=== PATIENT | female | born 1980 | race Caucasian/White ===

== ENCOUNTER → 2018-08-10 | Day surgery (SDC) | payer BC, SELFPAY ==
[2018-08-10 19:49] VITALS: BMI 30.2
--- NOTE | 2018-08-11 00:22 | PRG ---
DATE OF SERVICE: 08/10/2018 TIME OF SERVICE: 2215 hours. PRESENTING COMPLAINT: Vaginal bleeding and occasional contractions. HISTORY OF PRESENT ILLNESS: Ms. Radford is a patient of Dr. Nancy Desai, who is a G3, P2, at weeks' gestation. She reported some bleeding at home. When she presented, she had approximately 2 to 4 cm area on the pad. On cervical exam, she was noted to be 2 to 3 cm, 75% effaced, and -1 cephalic, bag of water intact, moderate amount of bleeding was noted down as well. VICE PRESIDENT PROCESS HISTORY: As noted; previous x2, ADAM of 08/20. The patient's group B strep negative. She is blood type A positive, antibody negative. PAST MEDICAL HISTORY: None. PAST SURGICAL HISTORY: None. ALLERGIES: DENIES. MEDICATIONS: vitamins. SOCIAL HISTORY: Denies tobacco, tobacco, or drug use. FAMILY HISTORY: Noncontributory. REVIEW OF SYSTEMS: Noncontributory. PHYSICAL EXAMINATION: GENERAL: White female, in no acute distress. VITAL SIGNS: Temperature 97, respirations 18, pulse 85, and blood pressure 118/72. HEENT: Within normal limits. LUNGS: Clear to auscultation bilaterally. ABDOMEN: Soft and nontender with occasional contractions. Fundal height 37 cm. FHTs 130s to 140s . GENITALIA: Vulva without lesions. Vagina is without discharge. Cervix after 2 hours of walking a recheck, she is still noted to be 2 to 3 cm, 75% to 80% effaced, -1 cephalic. A small amount of blood was noted. The baby was ballotable. There was no evidence of rupture of membranes. heart tracing revealed a category 1 heart rate tracing without decelerations. Bedside ultrasound was performed to evaluate for possibility of Vasa previa. No evidence of blood vessels noted on color-flow Doppler. IMPRESSION: Small amount of bleeding in early prodromal labor. No evidence of active labor. PLAN: Discussed with the patient options. We will discharge home. ER precautions. The patient is to keep scheduled followup with Dr. Desai. Job ID: [id number]
== END ==
LOC: L&D/OP 19:18
PROVIDERS: ATTEND Family Medicine
DX: O46.90 Antepartum hemorrhage, unspecified, unspecified trimester (principal); O47.9 False labor, unspecified; Z79.899 Other long term (current) drug therapy

== ENCOUNTER 2018-08-18 04:18 | Inpatient (IN) | payer BC ==
[2018-08-18 05:10] VITALS: BMI 30.1
[2018-08-18 05:37] LABS: Hemoglobin 11.3 g/dL (12.0-16.0); Mean Corpuscular HGB CONC 33.9 g/dL (32.0-36.0); Mean Corpuscular Volume 82.6 fL (78.0-98.0); Mean Platelet Volume 7.4 fL (7.4-10.4); Platelet Count 284 thou/uL (130-400); RBC Distribution Width 14.1 % (11.5-14.5); Red Blood Cell (RBC) Count 4.02 mill/uL (4.20-5.40); White Blood Cell (WBC) Count 12.5 thou/uL (4.8-10.8)
[2018-08-18] MEDS ORDERED: Promethazine HCl 25 MG/ML VIAL IM PRN (05:50)
[2018-08-18] MEDS ORDERED: Lactated Ringer's 1,000 ML IV SCH (05:50)
[2018-08-18] MEDS ORDERED: Ondansetron PF 4 MG/2 ML Vial IVP PRN (05:50)
[2018-08-18] MEDS ORDERED: NS w/ Oxytocin 10 units 500 ML IV SCH ×2 (06:00)
[2018-08-18] MEDS ORDERED: Lidocaine 1% (PF) 30 ML VIAL SC PRN (06:00)
[2018-08-18 06:07] LABS: HBSAg Index 0.29 S/CO (0-0.99); Hep B Surf Ag Non-Reactive S/CO (NonReactive)
[2018-08-18 06:21] LABS: Syphilis Antibody Nonreactive (Nonreactive); Syphilis Antibody Index 0.03 S/CO (<1.00 Non-Reactive)
[2018-08-18] MEDS ORDERED: Misoprostol 200 MCG TAB ONE (09:16)
[2018-08-18] MEDS: NS / Oxytocin 40 units/1000ml 1,000 ML IV SCH ×2 (09:18→10:53)
[2018-08-18] MEDS ORDERED: Misoprostol 200 MCG TAB PR SCH (10:15)
[2018-08-18] MEDS: Ibuprofen 800 MG TAB PO SCH ×2 (12:05→20:34)
[2018-08-18] MEDS: HYDROcodone/Acetaminophen 5/325 mg Tablet PO PRN ×2 (12:05→16:15)
[2018-08-18] MEDS ORDERED: Adacel (T-DAP) 0.5 ML SYRINGE IM ONE (13:22)
[2018-08-18] MEDS ORDERED: NS / Oxytocin 40 units/1000ml 1,000 ML IV SCH (13:22)
[2018-08-18] MEDS ORDERED: Bisacodyl 10 MG SUPP PR PRN (13:22)
[2018-08-18] MEDS ORDERED: Milk Of Magnesia 30 ML UDCUP PO PRN (13:22)
[2018-08-18] MEDS: Ferrous Sulfate 325 MG TAB PO SCH (16:24)
[2018-08-18] MEDS: Docusate Calcium (SURFAK) 240 MG CAP PO SCH (20:34)
[2018-08-18] MEDS ORDERED: Lanolin Ointment 7 GM TUBE TOP PRN (22:58)
[2018-08-19] MEDS: Ibuprofen 800 MG TAB PO SCH ×3 (05:18→21:33)
[2018-08-19 06:16] LABS: Hemoglobin 8.3 g/dL (12.0-16.0); Mean Corpuscular HGB CONC 33.6 g/dL (32.0-36.0); Mean Corpuscular Hemoglobin 28.4 pg (27.0-31.0); Mean Corpuscular Volume 84.6 fL (78.0-98.0); Mean Platelet Volume 6.8 fL (7.4-10.4); Platelet Count 223 thou/uL (130-400); RBC Distribution Width 13.9 % (11.5-14.5); Red Blood Cell (RBC) Count 2.93 mill/uL (4.20-5.40); White Blood Cell (WBC) Count 11.8 thou/uL (4.8-10.8)
[2018-08-19] MEDS: Ferrous Sulfate 325 MG TAB PO SCH ×2 (08:21→15:58)
[2018-08-19] MEDS: HYDROcodone/Acetaminophen 5/325 mg Tablet PO PRN (08:22)
[2018-08-19] MEDS: Docusate Calcium (SURFAK) 240 MG CAP PO SCH ×2 (10:08→21:33)
--- NOTE | 2018-08-19 13:03 | PDOC.PP ---
Post Progress Note Post Day #: 1 Subjective: Doing well. . PO intake tolerated: yes Flatus: yes Ambulation: yes Vital Signs (12 hours) Temp Pulse Resp BP Pulse Ox 08/19/18 08:13 98.4 F 73 20 97/54 L 96 08/19/18 05:25 97.6 F 69 16 99/57 L Weight Weight 198 lb - Physical Examination General: NAD Cardiovascular: no m/r/g, RRR Respiratory: clear to auscultation bilaterally, non-labored breathing Abdominal: + bowel sounds, lochia, no distention, appropriately TTP Result Diagrams: 08/19/18 05:52 Additional Labs: Post Labs Blood Type A POSITIVE 08/18/18 05:20 Hep Bs Antigen Non-Reactive S/CO (NonReactive) 08/18/18 05:20 (1) Vaginal delivery Code(s): O80 - ENCOUNTER FOR FULL-TERM UNCOMPLICATED DELIVERY Status: Acute - Assessment/Plan Routine care D/C tomorrow
[2018-08-20] MEDS: Ibuprofen 800 MG TAB PO SCH (05:44)
[2018-08-20 07:53] VITALS: BP 96/52; TEMP 98.3
--- NOTE | 2018-08-20 08:26 | PDOC.PP ---
Post Progress Note Post Day #: 2 Subjective: Doing well, no complaints, no sx of anemia PO intake tolerated: yes Flatus: yes Ambulation: yes Vital Signs (12 hours) Temp Pulse Resp BP Pulse Ox 08/20/18 07:52 98.3 F 78 20 96/52 L 98 Weight Weight 198 lb - Physical Examination General: NAD Cardiovascular: RRR (2/6 flow murmur) Respiratory: clear to auscultation bilaterally, non-labored breathing Abdominal: + bowel sounds, lochia, no distention, appropriately TTP Result Diagrams: 08/19/18 05:52 Additional Labs: Post Labs Blood Type A POSITIVE 08/18/18 05:20 Hep Bs Antigen Non-Reactive S/CO (NonReactive) 08/18/18 05:20 (1) Vaginal delivery Code(s): O80 - ENCOUNTER FOR FULL-TERM UNCOMPLICATED DELIVERY Status: Acute - Assessment/Plan Routine care D/C home
[2018-08-20] MEDS: Docusate Calcium (SURFAK) 240 MG CAP PO SCH (09:11)
[2018-08-20] MEDS: Ferrous Sulfate 325 MG TAB PO SCH (09:11)
== END 2018-08-20 11:25 | disposition home or self-care (01) | DRG 807 ==
LOC: L&D/OP 04:18 → L&D 05:10 → 3SW 14:17
PROVIDERS: ADMIT Family Medicine; ATTEND Family Medicine
PROC: 10E0XZZ Delivery of Products of Conception, External Approach (ICD-10-PCS; principal; 2018-08-18)
PROC: 0HQ9XZZ Repair Perineum Skin, External Approach (ICD-10-PCS; 2018-08-18)
PROC: 10907ZC Drainage of Amniotic Fluid, Therapeutic from Products of Conception, Via Natural or Artificial Opening (ICD-10-PCS; 2018-08-18)
DX: O70.0 First degree perineal laceration during delivery (principal); Z37.0 Single live birth; Z3A.39 39 weeks gestation of pregnancy
CPT/HCPCS: 36415; 85027; 86780; 86850; 86900; 86901; 87340; 99285; J2001

== ENCOUNTER 2022-06-20 13:36 | Outpatient (CLI) | payer BC | END 2022-06-20 13:37 | disposition home or self-care (01) | LOC: SCSRAD 13:36 | PROVIDERS: ATTEND Chiropractor | DX: M71.551 Other bursitis, not elsewhere classified, right hip (principal); M16.11 Unilateral primary osteoarthritis, right hip ==